=== PATIENT | female | born 1970 | race Caucasian/White ===

== ENCOUNTER → 2016-09-03 | Outpatient (CLI) | payer BC ==
[2016-09-03 19:47] LABS: Basophils # (A) 0.1 k/uL (0-0.2); Basophils % (A) 1 %; CHCM 32.2; Eosinophils # (A) 0.2 k/uL (0-0.7); Eosinophils % (A) 4 %; HCT 40.7 % (34.0-46.0); HDW 2.18; Luc # (Auto) 0.07; Luc % (Auto) 2; Lymphocytes # (A) 1.2 k/uL (1.0-4.8); Lymphocytes % (A) 35 %; MCH 31.8 pg (25.0-35.0); MCHC 31.9 g/dL (31.0-37.0); MCV 99.8 fL (80.0-100.0); Monocytes # (A) 0.2 k/uL (0-1.0); Monocytes % (A) 5 %; Neutrophils # (A) 1.8 k/uL (1.3-7.7); Neutrophils % (A) 53 %; RBC 4.07 m/uL (3.80-5.40); RDW 12.5 % (11.5-15.5); WBC 3.4 k/uL (3.8-10.6); WBC (Perox) 3.55
[2016-09-03 19:56] LABS: ALT 24 U/L (9-52); AST 27 U/L (14-36); Alkaline Phosphatase 53 U/L (38-126); Anion Gap 10 mmol/L; Blood Urea Nitrogen 16 mg/dL (7-17); Calcium 9.9 mg/dL (8.4-10.2); Carbon Dioxide 28 mmol/L (22-30); Chloride 103 mmol/L (98-107); Cholesterol 175 mg/dL (<200); Glucose 95 mg/dL (74-99); HDL Cholesterol 85 mg/dL (40-60); Iron 125 ug/dL (37-170); Non-African American GFR(MDRD) >60 (>60 ml/min/1.73 sqM); Potassium 4.5 mmol/L (3.5-5.1); Sodium 141 mmol/L (137-145); Total Bilirubin 0.7 mg/dL (0.2-1.3); Total Protein 7.3 g/dL (6.3-8.2); Triglycerides 81 mg/dL (<150)
[2016-09-03 20:05] LABS: % Iron Saturation 36.2 % (20-50); Total Iron Binding Capacity 345 ug/dL (265-497)
[2016-09-03 20:14] LABS: Follicle Stimulating Hormone 57.7 mIU/mL
== END | disposition home or self-care (01) ==
LOC: MMGSC 11:43
PROVIDERS: ATTEND Family Medicine
DX: Z00.00 Encounter for general adult medical examination without abnormal findings (principal); E34.9 Endocrine disorder, unspecified
CPT/HCPCS: 36415; 80053; 80061; 82728; 83001; 83002; 83540; 83550; 84439; 84443; 85025

== ENCOUNTER → 2017-06-03 | Outpatient (CLI) | payer BC ==
[2017-06-03 18:36] LABS: ALT 27 U/L (9-52); AST 29 U/L (14-36); Albumin 4.7 g/dL (3.5-5.0); Alkaline Phosphatase 68 U/L (38-126); Anion Gap 11 mmol/L; Blood Urea Nitrogen 16 mg/dL (7-17); Calcium 10.2 mg/dL (8.4-10.2); Carbon Dioxide 29 mmol/L (22-30); Chloride 101 mmol/L (98-107); Cholesterol 194 mg/dL (<200); Glucose 91 mg/dL (74-99); HDL Cholesterol 93 mg/dL (40-60); LDL Cholesterol,Calculated 88 mg/dL (0-99); Potassium 4.3 mmol/L (3.5-5.1); Sodium 141 mmol/L (137-145); Total Bilirubin 0.5 mg/dL (0.2-1.3); Total Protein 7.7 g/dL (6.3-8.2); Triglycerides 67 mg/dL (<150)
[2017-06-03 18:51] LABS: T4, Free (Free Thyroxine) 0.89 ng/dL (0.78-2.19)
[2017-06-03 18:56] LABS: Basophils % (A) 1 %; Eosinophils # (A) 0.1 k/uL (0-0.7); Eosinophils % (A) 3 %; HCT 39.9 % (34.0-46.0); HGB 13.5 gm/dL (11.4-16.0); Lymphocytes # (A) 1.4 k/uL (1.0-4.8); Lymphocytes % (A) 31 %; MCH 32.2 pg (25.0-35.0); MCHC 33.8 g/dL (31.0-37.0); MCV 95.2 fL (80.0-100.0); Mean Platelet Volume 6.7; Monocytes # (A) 0.2 k/uL (0-1.0); Monocytes % (A) 4 %; Neutrophils # (A) 2.7 k/uL (1.3-7.7); Neutrophils % (A) 60 %; Platelet Count 300 k/uL (150-450); RBC 4.19 m/uL (3.80-5.40); WBC 4.6 k/uL (3.8-10.6)
== END | disposition home or self-care (01) ==
LOC: MMGSC 12:03
PROVIDERS: ATTEND Family Medicine
DX: Z00.00 Encounter for general adult medical examination without abnormal findings (principal)
CPT/HCPCS: 36415; 80053; 80061; 84439; 84443; 85025

== ENCOUNTER → 2019-01-21 | Outpatient (CLI) | payer BC ==
--- NOTE | 2019-01-21 09:28 | US ---
EXAMINATION TYPE: US abdomen complete DATE OF EXAM: 01/21/2019 COMPARISON: NONE CLINICAL HISTORY: R10.31 Right lower quadrant pain. RLQ pain for 1 week that has since moved around p aruna EXAM MEASUREMENTS: Liver Length: 14.6 cm Gallbladder Wall: 0.2 cm CBD: 0.5 cm Spleen: 10.4 cm Right Kidney: 8.9 x 5.1 x 6.3 cm Left Kidney: 9.1 x 5.5 x 6.7 cm Pancreas: wnl Liver: wnl Gallbladder: wnl Evidence for sonographic Mckeon's sign: no CBD: wnl Spleen: wnl Right Kidney: Low in position Left Kidney: wnl Upper IVC: wnl Abd Aorta: wnl The liver is homogenous. The intrahepatic portion of the IVC and visualized abdominal aorta are with in normal limits. There is no evidence of cholelithiasis. Common bile duct is unremarkable. The vi sualized portions of the pancreas are homogenous. The spleen is unremarkable. Kidneys are symmetric and free of hydronephrosis. No renal lesions are seen. IMPRESSION: No suspicious acute finding is identified.
--- NOTE | 2019-01-21 09:38 | US ---
EXAMINATION TYPE: US pelvis complete transvag DATE OF EXAM: 01/21/2019 COMPARISON: NONE CLINICAL HISTORY: Pain. RLQ pain that has since moved around pelvis, no fever TECHNIQUE: Transvaginal (TV) and Transabdominal (TA) . Date of LMP: 2 yrs ago EXAM MEASUREMENTS: Uterus: 8.0 x 4.3 x 6.2 cm Endometrial Stripe: 0.4 cm Right Ovary: 1.5 x 1.2 x 1.5 cm Left Ovary: 1.5 x 1.1 x 1.0 cm 1. Uterus: Retroverted wnl 2. Endometrium: wnl 3. Right Ovary: sits anterior to right pelvic kidney, wnl 4. Left Ovary: 1.0cm single follicle seen 5. Bilateral Adnexa: right pelvic kidney within rt adnexa 6. Posterior cul-de-sac: wnl Retroverted uterus. Endometrial stripe heterogeneous measuring up to 4 mm image 24. No free fluid in pelvis. Low-lying right kidney into pelvis noted. Both ovaries are seen without suspicious pelvic mass. IMPRESSION: Pelvic positioning of right kidney with local mass effect may cause patient symptoms of r ight-sided pain
== END ==
LOC: RADUSWWP 08:08
PROVIDERS: ATTEND Family Medicine
DX: N28.89 Other specified disorders of kidney and ureter (principal); R10.31 Right lower quadrant pain
CPT/HCPCS: 76700; 76830; 76856

== ENCOUNTER → 2020-01-19 | Outpatient (CLI) | payer BC | END | disposition home or self-care (01) | LOC: LABWHC1 14:24 | PROVIDERS: ATTEND Family Medicine | DX: Z20.828 Contact with and (suspected) exposure to other viral communicable diseases (principal); Z03.818 Encounter for observation for suspected exposure to other biological agents ruled out | CPT/HCPCS: 87502; U0003; C9803 ==

== ENCOUNTER → 2020-09-06 | Outpatient (CLI) | payer BC ==
--- NOTE | 2020-09-06 10:20 | US ---
EXAMINATION TYPE: US abdomen complete DATE OF EXAM: 09/06/2020 COMPARISON: US 2019 CLINICAL HISTORY: R10.11 RUQ pain. RUQ pain x couple months EXAM MEASUREMENTS: Liver Length: 13.5 cm Gallbladder Wall: 0.1 cm CBD: 0.4 cm Spleen: 10.3 cm Right Kidney: 9.4 x 6.0 x 4.8 cm Left Kidney: 9.0 x 6.2 x 4.9 cm Pancreas: visualized portions wnl, tail obscured by overlying midline bowel gas Liver: wnl Gallbladder: wnl Evidence for sonographic Mckeon's sign: no CBD: visualized portions wnl, limited by overlying bowel gas Spleen: visualized portions wnl, limited by overlying bowel gas Right Kidney: pelvic kidney, 1.2cm cystic area mid pole Left Kidney: wnl Upper IVC: wnl Abd Aorta: wnl IMPRESSION: 1. Right renal cyst
== END | disposition home or self-care (01) ==
LOC: RADUSWWP 09:27
PROVIDERS: ATTEND Family Medicine
DX: N28.1 Cyst of kidney, acquired (principal)
CPT/HCPCS: 76700

== ENCOUNTER → 2021-05-08 | Outpatient (CLI) | payer BC ==
--- NOTE | 2021-05-20 13:55 | EM ---
EVENT MONITOR Patient was monitored between May 08 and May 15, 2021. The rhythm strip revealed a sinus mechanism with normal conduction. There was episode of 2:1 conduction occurring at night that could represent Wenckebach. No atrial fibrillation was noted. No ventricular ectopic activity was reported. MMSAMMIE / KRISTINN: [id number] /
== END | disposition home or self-care (01) ==
LOC: RADECHMAIN 07:19 → MERGE 07:30
PROVIDERS: ATTEND Family Medicine
DX: R00.2 Palpitations (principal)
CPT/HCPCS: 93270

== ENCOUNTER 2021-09-01 19:52 | Emergency (ER) | payer BC ==
[2021-09-01 20:04] VITALS: TEMP 97.7
--- NOTE | 2021-09-01 20:40 | ED ---
Neuro HPI - General Chief Complaint: Neuro Symptoms/Deficit Stated Complaint: slurred Speech/balance off Time Seen by Provider: 09/01/21 20:12 Source: patient, RN notes reviewed Mode of arrival: ambulatory Limitations: no limitations - History of Present Illness Is the patient presenting with stroke symptoms?: No Initial Comments: 51-year-old female with no prior history of strokes or lung issues she is currently in the process of being worked up by an loss control consultant who presents with complaints of the onset around 6:30 this evening of slurred speech and drooling some trouble swallowing with liquid coming from her mouth when she tried to swallow. Currently the symptoms have resolved she denies any focal weakness to her upper or lower extremities no palpitations she is very anxious however. She does states she been drinking wine since this morning grieving over the loss of a dog recently. She has a family history significant for mother had a TIA in her early 60s. Patient herself denies any trauma any headac he blurry vision or other symptoms at this time. - Related Data Home Medications: Home Medications Medication Instructions Recorded Confirmed ALPRAZolam [Xanax] 0.5 mg PO DAILY PRN 09/01/21 09/01/21 Aspirin EC [Ecotrin Low Dose] 81 mg PO DAILY 09/01/21 09/01/21 Cholecalciferol [Vitamin D3 (25 25 mcg PO DAILY 09/01/21 09/01/21 Mcg = 1000 Iu)] Multivitamins, Thera [Multivitamin 1 tab PO DAILY 09/01/21 09/01/21 (formulary)] Venlafaxine HCl ER [Effexor Xr] 75 mg PO DAILY 09/01/21 09/01/21 Vitamin C/Biotin [Hair, Skin and 1 tab PO DAILY 09/01/21 09/01/21 Nails Chew] Allergies/Adverse Reactions: Allergies Allergy/AdvReac Type Severity Reaction Status Date / Time albuterol Allergy Rapid Verified 09/01/21 21:23 Heart Rate Sulfa (Sulfonamide Allergy Rash/Hives Verified 09/01/21 21:23 Antibiotics) Review of Systems ROS Statement: Those systems with pertinent positive or pertinent negative responses have been documented in the HPI. ROS Other: All systems not noted in ROS Statement are negative. General Exam - General Exam Comments Initial Comments: This is a well-developed well-nourished awake alert oriented 4 female Limitations: no limitations General appearance: alert, anxious Head exam: Present: atraumatic, normocephalic, normal inspection Eye exam: Present: normal appearance, PERRL, EOMI. Absent: scleral icterus, conjunctival injection, periorbital swelling ENT exam: Present: normal exam, mucous membranes moist Neck exam: Present: normal inspection, full ROM, other. Absent: tenderness, meningismus, lymphadenopathy Respiratory exam: Present: normal lung sounds bilaterally. Absent: respiratory distress, wheezes, rales, rhonchi, stridor Cardiovascular Exam: Present: normal rhythm, tachycardia, normal heart sounds. Absent: systolic murmur, diastolic murmur, rubs, gallop, clicks GI/Abdominal exam: Present: soft, normal bowel sounds. Absent: distended, tenderness, guarding, rebound, rigid Extremities exam: Present: normal inspection, full ROM, normal capillary refill. Absent: tenderness, pedal edema, joint swelling, calf tenderness Back exam: Present: normal inspection Neurological exam: Present: alert, oriented X3, CN II-XII intact Psychiatric exam: Present: normal affect, normal mood Skin exam: Present: warm, dry, intact, normal color. Absent: rash Stroke MDM - Lab Data Result diagrams: 09/01/21 19:57 09/01/21 19:57 Lab Results 09/01/21 09/01/21 09/01/21 Range/Units 19:57 19:57 19:57 WBC 5.7 (3.8-10.6) k/uL RBC 4.08 (3.80-5.40) m/uL Hgb 13.6 (11.4-16.0) gm/dL Hct 40.6 (34.0-46.0) % MCV 99.5 (80.0-100.0) fL MCH 33.3 (25.0-35.0) pg MCHC 33.5 (31.0-37.0) g/dL RDW 12.3 (11.5-15.5) % Plt Count 385 (150-450) k/uL MPV 6.5 Neutrophils % 49 % Lymphocytes % 42 % Monocytes % 3 % Eosinophils % 2 % Basophils % 1 % Neutrophils # 2.8 (1.3-7.7) k/uL Lymphocytes # 2.4 (1.0-4.8) k/uL Monocytes # 0.2 (0-1.0) k/uL Eosinophils # 0.1 (0-0.7) k/uL Basophils # 0.1 (0-0.2) k/uL PT 9.8 (9.0-12.0) sec INR 0.9 (<1.2) APTT 22.5 (22.0-30.0) sec Sodium 139 (137-145) mmol/L Potassium 4.2 (3.5-5.1) mmol/L Chloride 107 (98-107) mmol/L Carbon Dioxide 20 L (22-30) mmol/L Anion Gap 12 mmol/L BUN 17 (7-17) mg/dL Creatinine 0.64 (0.52-1.04) mg/dL Est GFR (CKD-EPI)AfAm >90 (>60 ml/min/1.73 sqM) Est GFR (CKD-EPI)NonAf >90 (>60 ml/min/1.73 sqM) Glucose 108 H (74-99) mg/dL Calcium 9.1 (8.4-10.2) mg/dL Magnesium 1.8 (1.6-2.3) mg/dL Total Bilirubin 0.2 (0.2-1.3) mg/dL AST 38 H (14-36) U/L ALT 20 (4-34) U/L Alkaline Phosphatase 73 (38-126) U/L Troponin I (0.000-0.034) ng/mL Total Protein 7.7 (6.3-8.2) g/dL Albumin 4.7 (3.5-5.0) g/dL TSH 1.090 (0.465-4.680) mIU/L Serum Alcohol 25 mg/dL 09/01/21 Range/Units 19:57 WBC (3.8-10.6) k/uL RBC (3.80-5.40) m/uL Hgb (11.4-16.0) gm/dL Hct (34.0-46.0) % MCV (80.0-100.0) fL MCH (25.0-35.0) pg MCHC (31.0-37.0) g/dL RDW (11.5-15.5) % Plt Count (150-450) k/uL MPV Neutrophils % % Lymphocytes % % Monocytes % % Eosinophils % % Basophils % % Neutrophils # (1.3-7.7) k/uL Lymphocytes # (1.0-4.8) k/uL Monocytes # (0-1.0) k/uL Eosinophils # (0-0.7) k/uL Basophils # (0-0.2) k/uL PT (9.0-12.0) sec INR (<1.2) APTT (22.0-30.0) sec Sodium (137-145) mmol/L Potassium (3.5-5.1) mmol/L Chloride (98-107) mmol/L Carbon Dioxide (22-30) mmol/L Anion Gap mmol/L BUN (7-17) mg/dL Creatinine (0.52-1.04) mg/dL Est GFR (CKD-EPI)AfAm (>60 ml/min/1.73 sqM) Est GFR (CKD-EPI)NonAf (>60 ml/min/1.73 sqM) Glucose (74-99) mg/dL Calcium (8.4-10.2) mg/dL Magnesium (1.6-2.3) mg/dL Total Bilirubin (0.2-1.3) mg/dL AST (14-36) U/L ALT (4-34) U/L Alkaline Phosphatase (38-126) U/L Troponin I <0.012 (0.000-0.034) ng/mL Total Protein (6.3-8.2) g/dL Albumin (3.5-5.0) g/dL TSH (0.465-4.680) mIU/L Serum Alcohol mg/dL - NIH Stroke Scale 1b. LOC Questions: (0) answers correctly 1c. LOC Commands: (0) performs tasks correctly 2. Best Gaze: (0) normal 3. Visual: (0) no visual loss 4. Facial Palsy: (0) normal symmetrical movement 5a. Motor Arm Left: (0) no drift 5b. Motor Arm Right: (0) no drift 6a. Motor Leg Left: (0) no drift 6b. Motor Leg Right: (0) no drift 7. Limb Ataxia: (0) absent 8. Sensory: (0) normal 9. Best Language: (0) no aphasia 10. Dysarthria: (0) normal 11. Extinction/Inattention: (0) no abnormality - Medical Decision Making Reevaluation patient finds that she is resting comfortably when I am out of the room the patient's heart rate is much improved and she'll physical contact made. A long discussion with patient and her regarding the findings she believes is secondary to anxiety and at this point the workup was negative including CAT scan showing no evidence of any abnormality. Patient was offered admission and declines and wishes to go home and keep her cardiology appointment tomorrow. We did discuss return parameters patient will be discharged. The patient is aware the TIA cannot be totally ruled out. - EKG Data -: EKG Interpreted by Me EKG shows normal: sinus rhythm (Sinus tachycardia rate 160. Interval 160 QRS duration 70 QT since QTC to 79/348 possible left atrial enlargement possible right ventricular conduction delay artifact present) Past Medical History Additional Past Medical History / Comment(s): dysrhythmia History of Any Multi-Drug Resistant Organisms: None Reported Past Surgical History: No Surgical Hx Reported Past Psychological History: Anxiety, Depression Smoking Status: Never smoker Past Alcohol Use History: Occasional Past Drug Use History: None Reported Course Vital Signs 09/01/21 09/01/21 19:59 21:18 Temperature 97.7 F Pulse Rate 118 H 107 H Respiratory 16 20 Rate Blood Pressure 148/80 160/78 O2 Sat by Pulse 96 98 Oximetry Disposition Clinical Impression: Anxiety Disposition: HOME SELF-CARE Condition: Good Instructions (If sedation given, give patient instructions): Anxiety (ED) Additional Instructions: Keep her cardiology appointment as planned tomorrow. Is patient prescribed a controlled substance at d/c from ED?: No Referrals: Lissy Mistry MD [Primary Care Provider] - 1-2 days Decision Date: 09/01/21 Decision Time: 21:52
[2021-09-01 20:47] LABS: Basophils # (A) 0.1 k/uL (0-0.2); Basophils % (A) 1 %; Eosinophils # (A) 0.1 k/uL (0-0.7); Eosinophils % (A) 2 %; HCT 40.6 % (34.0-46.0); HGB 13.6 gm/dL (11.4-16.0); Lymphocytes # (A) 2.4 k/uL (1.0-4.8); Lymphocytes % (A) 42 %; MCH 33.3 pg (25.0-35.0); MCHC 33.5 g/dL (31.0-37.0); MCV 99.5 fL (80.0-100.0); Mean Platelet Volume 6.5; Monocytes # (A) 0.2 k/uL (0-1.0); Monocytes % (A) 3 %; Neutrophils # (A) 2.8 k/uL (1.3-7.7); Neutrophils % (A) 49 %; Platelet Count 385 k/uL (150-450); RBC 4.08 m/uL (3.80-5.40); RDW 12.3 % (11.5-15.5); WBC 5.7 k/uL (3.8-10.6)
[2021-09-01 20:58] LABS: INR 0.9 (<1.2); Partial Thromboplastin Time 22.5 sec (22.0-30.0); Prothrombin Time 9.8 sec (9.0-12.0)
--- NOTE | 2021-09-01 20:58 | XR ---
EXAMINATION TYPE: XR chest 2V DATE OF EXAM: 09/01/2021 COMPARISON: NONE HISTORY: Altered mental status TECHNIQUE: 2 views FINDINGS: Heart and mediastinum are normal. Lungs are clear. Diaphragm is normal. Bony thorax appears normal. IMPRESSION: Normal chest.
--- NOTE | 2021-09-01 21:02 | CT ---
EXAMINATION TYPE: CT brain wo con for TPA DATE OF EXAM: 09/01/2021 COMPARISON: None HISTORY: slurred speech CT DLP: 1134.9 mGycm Automated exposure control for dose reduction was used. Ventricles have normal size. There is no mass effect or midline shift. No sign of intracranial hemorr rolf. The calvarium is intact. There is left-sided prominent virchow jun space. IMPRESSION: Negative unenhanced head CT scan.
[2021-09-01 21:03] LABS: ALT 20 U/L (4-34); AST 38 U/L (14-36); African American GFR (CKD) >90 (>60 ml/min/1.73 sqM); Albumin 4.7 g/dL (3.5-5.0); Alcohol 25 mg/dL; Alkaline Phosphatase 73 U/L (38-126); Anion Gap 12 mmol/L; Blood Urea Nitrogen 17 mg/dL (7-17); Calcium 9.1 mg/dL (8.4-10.2); Carbon Dioxide 20 mmol/L (22-30); Chloride 107 mmol/L (98-107); Glucose 108 mg/dL (74-99); Magnesium 1.8 mg/dL (1.6-2.3); Non-African American GFR(CKD) >90 (>60 ml/min/1.73 sqM); Potassium 4.2 mmol/L (3.5-5.1); Sodium 139 mmol/L (137-145); Total Bilirubin 0.2 mg/dL (0.2-1.3); Total Protein 7.7 g/dL (6.3-8.2)
[2021-09-01 21:19] VITALS: RESP 20
--- NOTE | 2021-09-01 21:27 | CT ---
EXAMINATION TYPE: CT angio head neck DATE OF EXAM: 09/01/2021 COMPARISON: None HISTORY: slurred speech CT DLP: 454.9 mGycm Automated exposure control for dose reduction was used. CONTRAST: Performed with IV Contrast, patient injected with 65cc mL of Isovue 370. Images obtained from the aortic arch to the vertex of the brain with IV contrast. There are Three-D p ostprocessed images. FINDINGS: There is normal branching pattern of the great vessels on the aortic arch. There is arterial flow in both subclavian arteries. There is arterial flow in the common internal and external carotid arteries bilaterally. There is wide patency of the carotid artery bifurcations. There is arterial flow in bot h vertebral arteries. No evidence of carotid or vertebral artery aneurysm or dissection. There is arterial flow in the anterior middle and posterior cerebral arteries bilaterally. There is w duane patency of the intracranial arteries. No evidence of intracranial aneurysm or neovascularity. No evidence of stenosis. No mass effect. There is normal enhancement of the venous sinuses.
[2021-09-01 22:22] VITALS: BP 133/87; PULSE 99
== END 2021-09-01 22:22 | disposition home or self-care (01) ==
LOC: EC 19:52
DX: F41.9 Anxiety disorder, unspecified (principal); Z88.2 Allergy status to sulfonamides; Z88.9 Allergy status to unspecified drugs, medicaments and biological substances
CPT/HCPCS: 36415; 93005; 80053; 84443; 83735; 84484; 85025; 85610; 85730; 80320; 71046; 70496; 70450; 70498; 99285; Q9967

== ENCOUNTER 2022-04-01 07:12 | Day surgery (SDC) | payer BC ==
[2022-03-27 16:12] VITALS: BMI 24.7
[~2022-04-01 07:12] MED LIST: LACTATED RINGERS 1,000 ML IV SCH
[2022-04-01 07:56] VITALS: TEMP 98.3
[2022-04-01] MEDS ORDERED: PROPOFOL 10 MG/ML 20 ML VIAL IV ONE (08:29)
[2022-04-01] MEDS ORDERED: LIDOCAINE 2% INJ 20 MG/ML (2 ML VIAL) ONE (08:29)
--- NOTE | 2022-04-01 08:43 | P.PCN ---
Date of Procedure: 04/01/22 Procedure(s) Performed: BRIEF HISTORY: Patient is a 52-year-old pleasant female scheduled for an elective colonoscopy as a part of screening for colon cancer. PROCEDURE PERFORMED: Colonoscopy. PREOPERATIVE DIAGNOSIS: Screening for colon cancer. IV sedation per Anesthesia. PROCEDURE: After informed consent was obtained, the patient, was brought into the endoscopy unit. IV sedation was administered by Anesthesia under continuous monitoring. Digital rectal examination was normal. Initially the Olympus CF-160 flexible video colonoscope was then inserted in the rectum, gradually advanced into the cecum without any difficulty. Careful examination was performed as the scope was gradually being withdrawn. Ileocecal valve and the appendiceal orifice were visualized and appeared normal. Prep was excellent. Mucosa of the cecum, ascending colon, transverse colon, descending colon, sigmoid colon, and rectum appeared normal. Retroflexion was performed in the rectum and no lesions were seen. The patient tolerated the procedure well. IMPRESSION: Normal-appearing colon from rectum to cecum with no evidence of colorectal neoplasia. RECOMMENDATIONS: Findings of this examination were discussed with the patient as well as her family. She was advised to have a repeat screening colonoscopy in 10 years.
[2022-04-01 09:17] VITALS: BP 123/77; PULSE 79; RESP 16
== END 2022-04-01 09:17 | disposition home or self-care (01) ==
LOC: ORWHC2ENDO 07:12
PROVIDERS: ATTEND Internal Medicine Gastroenterology
DX: Z12.11 Encounter for screening for malignant neoplasm of colon (principal)
CPT/HCPCS: 45378; J2704; J2001

== ENCOUNTER → 2022-06-16 | Outpatient (CLI) | payer BC ==
--- NOTE | 2022-06-16 11:01 | US ---
EXAMINATION TYPE: US abdomen complete DATE OF EXAM: 06/16/2022 COMPARISON: US 2020 CLINICAL HISTORY: R10.9 R10.2 RT FLANK PAIN, PELVIC PAIN. Right sided pain toward the back x 1 month. Right pelvic kidney. TECHNIQUE: Multiple sonographic images of the abdomen are obtained. FINDINGS: EXAM MEASUREMENTS: Liver Length: 14.6 cm Gallbladder Wall: 0.16 cm CBD: Obscured Spleen: 9.0 cm Right Kidney: 9.3 x 4.0 x 4.1 cm Left Kidney: 10.0 x 5.4 x 7.0 cm BREAKFAST AND ROOM ATTENDANT NOTES: Limited due to gas. Pancreas: Limited visibility of tail. Liver: Appears to be wnl Gallbladder: Hyperechoic area seen that appears to be attached to the gallbladder wall: 0.2 x 0.2 x 0.3 cm. Evidence for sonographic Mckeon's sign: No CBD: Obscured Spleen: Appears wnl Right Kidney: *Known right pelvic kidney. Hypoechoic area seen at mid: 0.6 x 0.9 x 0.7 cm. Left Kidney: Very limited due to gas. Upper IVC: Appears wnl Abd Aorta: Appears wnl Visualized portion of pancreas is unremarkable. Portion of distal body and tail are obscured by overl bladimir bowel gas. Aorta is seen through the bifurcation. Visualized liver shows no worrisome mass or du ctal dilatation. Pelvic right kidney redemonstrated. Gallbladder shows 2 mm tiny polyp. No shadowing mobile gallstones. IMPRESSION: No suspicious new or acute findings. Suboptimal evaluation of the left kidney along with common bile duct and pancreas on this exam however.
--- NOTE | 2022-06-16 11:04 | US ---
EXAMINATION TYPE: US pelvis complete transvag DATE OF EXAM: 06/16/2022 COMPARISON: US 2019 CLINICAL HISTORY: R10.9 R10.2 RT FLANK PAIN, PELVIC PAIN. Right sided pain toward the back. Hx 1 misc arriage. Known right pelvic kidney. TECHNIQUE: Transvaginal (TV) and Transabdominal (TA) . Transabdominal sonographic images of the pel vis were acquired. Transvaginal sonographic images were medically necessary to better assess the fol lowing anatomy: ovaries Date of LMP: 5 years ago. EXAM MEASUREMENTS: Uterus: 7.2 x 3.9 x 2.8 cm Endometrial Stripe: 0.29 cm Right Ovary: Not seen. Left Ovary: Not seen. 1. Uterus: Anteverted Heterogeneous. Hypoechoic area seen in cervix: 0.4 x 0.5 x 0.3 cm. 2. Endometrium: 0.29 cm. 3. Right Ovary: Unable to visualize. 4. Left Ovary: Unable to visualize. 5. Bilateral Adnexa: Limited due to gas and shadowing. No abnormalities seen. 6. Posterior cul-de-sac: Fluid seen*. Heterogeneous anteverted uterus current study. Trace free fluid in pelvic cul-de-sac. Endometrial str ipe within normal limits for a postmenopausal female. No concerning adnexal masses. IMPRESSION: Trace free fluid in the pelvis otherwise unremarkable study.
== END | disposition home or self-care (01) ==
LOC: RADUSWWP 09:35
PROVIDERS: ATTEND Family Medicine
DX: R10.9 Unspecified abdominal pain (principal); R10.2 Pelvic and perineal pain
CPT/HCPCS: 76700; 76830; 76856

== ENCOUNTER → 2022-08-05 | Outpatient (CLI) | payer BC ==
--- NOTE | 2022-08-06 20:56 | MR ---
EXAMINATION TYPE: MR brain wo con DATE OF EXAM: 08/05/2022 COMPARISON: CT 09/01/2021 HISTORY: 52-year-old female Z86.73, personal history of TIA, slurred speech. TECHNIQUE: Multiplanar, multisequence images of the brain and brainstem were acquired without IV con trast. Diffusion weighted imaging is performed. FINDINGS: No evidence for acute infarction, hemorrhage, mass, mass effect, midline shift, herniation, effacemen t of basal cisterns, or extra-axial fluid collection. The ventricles and sulci are age-appropriate. Major intracranial flow voids are intact. Dominant left vertebral artery. T2-weighted FLAIR images and T2-weighted images show mild to moderate scattered burden of bright sign al foci within the subcortical and deep white matter regions of both cerebral hemispheres. There is a lso a prominent 1.0 cm perivascular space in the left basal ganglia incidentally noted. Midline structures demonstrate normal morphology. The craniocervical junction is normal. Mild mucosal thickening throughout the ethmoid air cells. Globes are intact. IMPRESSION: 1. [id number] scattered burden of T2 bright white matter change. This is nonspecific but may re late to chronic small vessel ischemic disease. Clinically correlate. Chronic migraines are also a con sideration. Demyelinating disease considered less likely. 2. No acute intracranial abnormality seen. 3. Mild chronic ethmoid sinus disease
== END | disposition home or self-care (01) ==
LOC: RADMRIMAIN 06:51
PROVIDERS: ATTEND Psychiatry & Neurology Neurology
DX: J32.2 Chronic ethmoidal sinusitis (principal); I67.82 Cerebral ischemia; R47.81 Slurred speech; Z86.73 Personal history of transient ischemic attack (TIA), and cerebral infarction without residual deficits
CPT/HCPCS: 70551

== ENCOUNTER → 2023-09-24 | Outpatient (CLI) | payer BC ==
--- NOTE | 2023-09-25 14:44 | XR ---
EXAMINATION TYPE: XR finger RT DATE OF EXAM: 09/24/2023 6:08 PM CLINICAL INDICATION:Female, 53 years old with history of S60.949A UNSP SUPERFICIAL INJURY OF UNSPECIF IED FI; PHH COMPARISON: None TECHNIQUE: XR finger RT Frontal, lateral and oblique views were obtained. FINDINGS: Normal alignment of the visualized joints. No acute osseous pathology is identified. Ther e is soft tissue swelling along the volar aspect of the distal third digit tip. No evidence for fract ure.. No significant degeneration IMPRESSION: 1. Soft tissue swelling along the distal tip of the third digit without evidence of fracture. 2. Multifocal osteoarthrosis throughout the joints of the hand.
== END | disposition home or self-care (01) ==
LOC: RADXRMAIN 17:32
PROVIDERS: ATTEND Family Medicine
DX: M19.041 Primary osteoarthritis, right hand (principal)